=== PATIENT | male | born 1945 | race Caucasian/White ===

== ENCOUNTER → 2016-11-23 | Outpatient (CLI) | payer MEDICARE ==
[~2016-11-23] MED LIST: BUMETANIDE2 MG PO; BYSTOLIC10 MG PO; COLACE100 MG PO; CPAP INH; CYSTEX PLUS TA1 EACH PO; DOCUSATE SODIUM PO; ECOTRIN325 MG PO; FIBER LAX625 MG PO; IMDUR60 MG PO; K-TAB 10MEQ10 MEQ PO; LIPITOR40 MG PO; LITHIUM CARBON300 M1 PO; LUPRON DEPOT11.25 MG IM; NORVASC10 MG PO; PERI-COLACE TA1 EACH PO; PRENATAL TABLE1 EAC1 PO; PRINIVIL (ZESTR20 MG PO; PROBIOTIC1 EAC1 PO; PROVENTIL OR V6.7 GM INH; RENVELA800 MG PO; TRAMADOL HCL50 MG PO; TYLENOL EXTRA500 MG PO; ULTRAM50 MG PO
== END | disposition disaster alternative care site (69) ==
LOC: GOPP 11-19 → GOPD 11-19 → GOPP → GRAD 12:36 → GOPP 13:00
PROC: 0TP94DZ Removal of Intraluminal Device from Ureter, Percutaneous Endoscopic Approach (ICD-10-PCS; principal; 2016-11-23)
PROC: 0T7 Urinary System, Dilation (ICD-10-PCS; 2016-11-23)
DX: Z46.6 Encounter for fitting and adjustment of urinary device (principal); N13.30 Unspecified hydronephrosis
CPT/HCPCS: C1769; C1773; C1887; C2617; J2001; J2250; J7030

== ENCOUNTER 2017-02-04 13:42 | Emergency (ER) | payer MEDICARE ==
--- NOTE | ~2017-02-04 | ER ---
PATIENT'S NAME: QUENTIN JUAREZ [facility] AGE: 71 Y [address] ROOM: [place] [address] LOCATION: [facility] ADMIT DATE: 02/04/2017 ER/Outpatient Report DISCHARGE DATE: 02/04/2017 FAMILY PHYSICIAN: Guille Montanez MD ATTENDING PHYSICIAN: Kortney Vilchis Time of Arrival: Admission date and time documented on the medical record. Time of Evaluation: I saw the patient at 1400 hours. CHIEF COMPLAINT: Left flank pain. HISTORY OF PRESENT ILLNESS: This patient is a 71-year-old male, who woke up at 0700 hours with severe left flank pain. It has been constant; seemed to get a little bit better when he got here to the emergency department. The patient came from [place], [place]. The patient has a stent that goes in his left flank into his ureter, down his ureter and up into the kidney. He has had this stent for about a year. It was initially placed about a year ago; Dr. Norris, interventional radiologist, changes it every 3 months. He has last changed this stent out about a month ago. The patient feels like he has something going on with his left ureter like a stone that is causing this pain. No nausea, vomiting, or diarrhea. The patient has a suprapubic catheter. He has a history of prostate cancer. He is doing peritoneal dialysis at the present time. No chest pain or shortness of breath. No lightheadedness, dizziness, syncope, or near syncope. No fall or trauma. No headache or eyes, ears, nose, throat, neck, or spine pain. No recent colds, coughs, flus, fever, chills, or sweats. The patient has a history of left hydronephrosis; chronic renal failure; and high-grade adenocarcinoma of the prostate, status post radiation and continuing hormonal ablative therapy; also has a suprapubic catheter in place. HOME MEDICATIONS: See attached medication list. ALLERGIES: IV CONTRAST. SOCIAL HISTORY: Nonsmoker. Nondrinker. SIGNIFICANT PAST MEDICAL HISTORY: Prostate cancer, atherosclerotic ischemic heart disease, coronary artery disease, hypertension, end-stage renal disease, colon polyps, bipolar disorder, COPD, and remote alcohol and illicit drug abuse. PATIENT'S NAME: QUENTIN JUAREZ [facility] AGE: 71 Y [address] ROOM: [place], [place] [address] LOCATION: [facility] ADMIT DATE: 02/04/2017 ER/Outpatient Report DISCHARGE DATE: 02/04/2017 FAMILY PHYSICIAN: Guille Montanez MD ATTENDING PHYSICIAN: Kortney Vilchis OPERATIONS: Cystoscopy, left renal stent, suprapubic catheter placement, peritoneal dialysis catheter placement, colonoscopy, 3-vessel coronary artery bypass graft, and cardiac catheterization. REVIEW OF SYSTEMS: All systems reviewed by me are negative with the exception of those discussed in the history of present illness. PHYSICAL EXAMINATION: VITAL SIGNS: Temperature 98.6, tympanic; pulse 72; respirations 20; blood pressure 158/77; and O2 saturation on room air is 95%. HEENT: Negative. LUNGS: Clear. HEART: Regular. No chest wall tenderness to palpation. ABDOMEN: Mildly obese, soft, nondistended, nontender. Bowel tones present. No organomegaly or abnormal mass palpable. The patient has a little bit of left flank tenderness to palpation. He does have a stent that goes into his left flank, into the left ureter. Suprapubic catheter in place and draining. EXTREMITIES: Intact. NEUROVASCULAR: Intact. SKIN: Clear. LABORATORY DATA: White count is 13,400, 82 segs, 9 bands, 6 monos, 3 eos; hemoglobin is 11.3 with hematocrit 33.9; platelet count is 262,000. Sedimentation rate was elevated at 106. CMS was normal except for an elevated glucose 158, elevated BUN of 44, elevated creatinine 3.3, low GFR 19, CRP was 6.08. Urine from the suprapubic catheter showed packed field whites, 10 to 20 reds, 2 to 5 epithelial cells, many bacteria, 2+ mucus material, 1+ amorphous material, negative nitrites, specific gravity is 1.010. Did a CT scan of the abdomen and pelvis with renal stone protocol that showed marked left hydronephrosis. No stone. No other acute changes. This is suggestive of malfunctioning of the stent. Dr. oNrris, interventional radiologist, happens to be here today. I did talk to him and he suggested that we need to replace the stent. I did discuss this with the patient, and he understands and agrees. IMPRESSION: 1. Left flank pain, acute onset, secondary to malfunctioning left renal ureteral stent that needs replaced. 2. End-stage renal disease, on peritoneal dialysis. 3. Hypertension. 4. Atherosclerotic ischemic heart disease with coronary artery disease. 5. Prostate cancer. 6. Chronic obstructive pulmonary disease. PATIENT'S NAME: QUENTIN JUAREZ [facility] AGE: 71 Y [address] ROOM: [place] [address] LOCATION: [facility] ADMIT DATE: 02/04/2017 ER/Outpatient Report DISCHARGE DATE: 02/04/2017 FAMILY PHYSICIAN: Guille Montanez MD ATTENDING PHYSICIAN: Kortney Vilchis 7. Bipolar disorder. PLAN: We will keep the patient here in the emergency department until they are ready for him in surgery to replace the stent per Dr. Norris, interventional radiologist. He is to follow up as scheduled tomorrow for MRI scan of his lumbosacral spine and pelvis and see Dr. Shirley, neurosurgeon tomorrow. KORTNEY VILCHIS MD SDS/modl /[id number] d: 02/04/17 2302 t: 02/05/17 0610, OUTPATIENT REPORT
[~2017-02-04 13:42] MED LIST changes: -ULTRAM50 MG PO
[2017-02-04 14:48] LABS: HEMATOCRIT 33.9 % (37.0-53.0); HEMOGLOBIN 11.3 g/dL (11.0-16.0); MCH 36.5 pg (27.0-34.0); MCHC 33.3 gm/dL (32.0-36.5); MCV 109.4 fl (83.0-98.0); MPV 9.7 fl (9.4-12.4); PLATELET COUNT 262 K/uL (150-450); RDW-CV 13.5 % (11.9-14.6); WBC 13.4 K/uL (4.0-11.0)
[2017-02-04 15:06] LABS: ALBUMIN 2.8 gm/dL (3.5-5.0); ANION GAP 12.4 (10.0-19.0); CALCIUM 8.9 mg/dL (8.5-10.5); CREATININE 3.3 mg/dL (0.6-1.3); POTASSIUM 4.4 mMol/L (3.7-5.1); TOTAL BILIRUBIN 0.5 mg/dL (0.0-1.5); TOTAL PROTEIN 6.9 g/dL (6.0-8.4)
[2017-02-04 15:15] LABS: BILIRUBIN URINE NEGATIVE (NEGATIVE); BLOOD URINE 150 /UL (NEGATIVE); GLUCOSE URINE NEGATIVE (NEGATIVE); KETONE URINE NEGATIVE (NEGATIVE); LEUKOCYTES URINE 500 /UL (NEGATIVE); NITRITE URINE NEGATIVE (NEGATIVE); PROTEIN URINE 30 mg/dL (NEGATIVE); UROBILINOGEN URINE NORMAL (NORMAL)
[2017-02-04 15:22] LABS: COLOR URINE YELLOW (YELLOW); TURBIDITY URINE 4+ (CLEAR)
[2017-02-04 15:23] LABS: WBC URINE PACKED FIELD #/HPF (NEGATIVE)
[2017-02-04 15:24] LABS: AMORPHOUS URINE 1+ (NEGATIVE); BACTERIA URINE MANY (NEGATIVE); MUCUS URINE 2+ (NEGATIVE)
[2017-02-04 15:30] LABS: ABSOLUTE NEUTROPHIL CT (ANC) 12.2 K/uL (1.4-9.0); BANDED NEUTROPHIL # 1.2 K/uL (0.0-0.1); BANDED NEUTROPHILS % 9 %; MONOCYTE # 0.8 K/uL (0.0-1.0); SEGMENTED NEUTROPHIL % 82 %
[2017-02-04 16:24] LABS: INR - (THERAPEUTIC) 0.98 (0.92-1.07); PROTIME 10.3 SECONDS (9.8-11.4)
[2017-02-23] MEDS ORDERED: ULTRAM50 MG PO (12:05)
== END 2017-02-04 17:47 | disposition disaster alternative care site (69) ==
LOC: GMED 13:42
PROVIDERS: Emergency Medicine; Radiology Diagnostic Radiology
DX: T83.84XA Pain due to genitourinary prosthetic devices, implants and grafts, initial encounter (principal); C61 Malignant neoplasm of prostate; I12.0 Hypertensive chronic kidney disease with stage 5 chronic kidney disease or end stage renal disease; N18.6 End stage renal disease; I25.10 Atherosclerotic heart disease of native coronary artery without angina pectoris; J44.9 Chronic obstructive pulmonary disease, unspecified; Z99.2 Dependence on renal dialysis; F31.9 Bipolar disorder, unspecified; Z79.899 Other long term (current) drug therapy; Z79.82 Long term (current) use of aspirin; Z88.1 Allergy status to other antibiotic agents; Z91.041 Radiographic dye allergy status; Z95.1 Presence of aortocoronary bypass graft
CPT/HCPCS: G0257; J1956; J7030

== ENCOUNTER → 2017-02-05 | Outpatient (CLI) | payer MEDICARE ==
[~2017-02-05] MED LIST changes: +ULTRAM50 MG PO
== END | disposition disaster alternative care site (69) ==
LOC: GRAD 10:11
DX: M54.9 Dorsalgia, unspecified (principal); M79.606 Pain in leg, unspecified; M89.9 Disorder of bone, unspecified

== ENCOUNTER → 2017-02-08 | Outpatient (CLI) | payer MEDICARE ==
[~2017-02-08] VITALS: Ht 180.3 cm; Wt 112.6 kg
== END | disposition disaster alternative care site (69) ==
LOC: GPOC 02-05 15:00
PROC: 0QB13ZX Excision of Sacrum, Percutaneous Approach, Diagnostic (ICD-10-PCS; principal; 2017-02-08)
PROC: 3E0T33Z Introduction of Anti-inflammatory into Peripheral Nerves and Plexi, Percutaneous Approach (ICD-10-PCS; 2017-02-08)
PROC: 3E0T3BZ Introduction of Anesthetic Agent into Peripheral Nerves and Plexi, Percutaneous Approach (ICD-10-PCS; 2017-02-08)
PROC: BR16YZZ Fluoroscopy of Lumbar Facet Joint(s) using Other Contrast (ICD-10-PCS; 2017-02-08)
DX: M87.9 Osteonecrosis, unspecified (principal); M89.9 Disorder of bone, unspecified; J44.9 Chronic obstructive pulmonary disease, unspecified; G47.33 Obstructive sleep apnea (adult) (pediatric); E66.9 Obesity, unspecified; I10 Essential (primary) hypertension; I25.10 Atherosclerotic heart disease of native coronary artery without angina pectoris; Z95.1 Presence of aortocoronary bypass graft; F31.9 Bipolar disorder, unspecified; Z85.46 Personal history of malignant neoplasm of prostate
CPT/HCPCS: A9503; J1040; J7030

== ENCOUNTER → 2017-02-25 | Outpatient (CLI) | payer MEDICARE | END | disposition disaster alternative care site (69) | LOC: GPOC 02-23 11:00 | PROC: 0QB13ZX Excision of Sacrum, Percutaneous Approach, Diagnostic (ICD-10-PCS; principal; 2017-02-25) | DX: M89.9 Disorder of bone, unspecified (principal); M87.9 Osteonecrosis, unspecified; I10 Essential (primary) hypertension | CPT/HCPCS: J7120 ==

== ENCOUNTER → 2017-04-08 | Outpatient (CLI) | payer MEDICARE | END | disposition disaster alternative care site (69) | LOC: GOPP 03-04 13:00 → GRAD 13:01 | PROC: 0T25X0Z Change Drainage Device in Kidney, External Approach (ICD-10-PCS; principal; 2017-04-08) | DX: Z46.6 Encounter for fitting and adjustment of urinary device (principal) | CPT/HCPCS: C1769; C1773; C1887; C2617; J0690; J1644; J2001; J7030 ==

== ENCOUNTER → 2017-04-27 | Outpatient (CLI) | payer MEDICARE | END | disposition disaster alternative care site (69) | LOC: LGSMG 15:09 | DX: F31.30 Bipolar disorder, current episode depressed, mild or moderate severity, unspecified (principal); Z79.899 Other long term (current) drug therapy ==

== ENCOUNTER → 2017-05-05 | Outpatient (CLI) | payer MEDICARE ==
[2017-05-05 14:39] LABS: HEMATOCRIT 34.3 % (37.0-53.0); HEMOGLOBIN 11.6 g/dL (11.0-16.0)
== END | disposition disaster alternative care site (69) ==
LOC: GLAB 14:21
PROVIDERS: Registered Nurse Medical-Surgical
DX: K62.5 Hemorrhage of anus and rectum (principal); Z85.46 Personal history of malignant neoplasm of prostate; Z99.2 Dependence on renal dialysis